=== PATIENT | male | born 1965 | race African-American/Black ===

== ENCOUNTER 2017-02-08 08:37 | Emergency (ER) | payer OTHER, BC ==
[2017-02-08] MEDS ORDERED: ONDANSETRON 4 MG TAB.RAPDIS SL ONE (09:47)
[2017-02-08] MEDS ORDERED: OXYCODONE-ACETAMINOPHEN 5-325 MG TABLET PO ONE (09:47)
--- NOTE | 2017-02-08 09:48 | ER Document Report ---
ED Medical Screen (RME) - General Chief Complaint: Flank Pain Stated Complaint: LOWER RIGHT ABDOMINAL PAIN Time seen by provider: 09:47 Mode of Arrival: Wheelchair Information source: Patient TRAVEL OUTSIDE OF THE [place] IN LAST 30 DAYS: No - HPI Patient complains to provider of: right flank pain Onset: Other - 2-3 days Onset/Duration: Gradual, Persistent Quality of pain: Achy, Fullness, Pressure Severity: Moderate Pain Level: 4 Associated Symptoms: Nausea Exacerbated by: Denies Relieved by: Denies Similar symptoms previously: Yes Recently seen / treated by doctor: No Notes: 02/08/17 09:48 Patient is a 51-year-old male who presents to the emergency room complaining of right-sided flank pain that's been worsening over the past 2-3 days, reports decreased kidney function in his left kidney, and a history of kidney stones in the past, patient denies any vomiting or diarrhea, no fever or chills, primary care provider is Dr. Honeycutt - Related Data Allergies/Adverse Reactions: No Known Allergies Allergy (Unverified 02/08/17 08:49) Past Medical History - Social History Chew tobacco use (# tins/day): No Frequency of alcohol use: None Drug Abuse: None - Past Medical History Cardiac Medical History: Reports: Hx Hypertension Renal/ Medical History: Reports: Hx Kidney Stones. Denies: Hx Peritoneal Dialysis Surgical Hx: Negative - Immunizations Hx Diphtheria, Pertussis, Tetanus Vaccination: No Physical Exam - Vital signs Vitals: Resp 02/08/17 09:46 Course - Vital Signs Vital signs: Temp Pulse Resp BP Pulse Ox 02/08/17 09:46
[2017-02-08 10:16] LABS: ABSOLUTE BASOPHILS # (AUTO) 0.1 10^3/uL (0.0-0.2); ABSOLUTE EOSINOPHILS # (AUTO) 0.3 10^3/uL (0.0-0.6); ABSOLUTE LYMPHOCYTES (AUTO) 1.2 10^3/uL (0.5-4.7); ABSOLUTE MONOCYTES (AUTO) 0.5 10^3/uL (0.1-1.4); ABSOLUTE NEUT (AUTO) 3.1 10^3/uL (1.7-8.2); BASOPHILS % (AUTO) 1.4 % (0-2); EOSINOPHILS % (AUTO) 5.5 % (0-6); HEMATOCRIT 41.2 % (37.9-51.0); HGB HCT DIFFERENCE 0.8; LYMPHOCYTES % (AUTO) 23.7 % (13-45); MEAN CORPUSCULAR HEMOGLOBIN 29.4 pg (27.0-33.4); MEAN CORPUSCULAR HGB CONC 34.1 g/dL (32.0-36.0); MEAN CORPUSCULAR VOLUME 86 fl (80-97); MONOCYTES % (AUTO) 9.9 % (3-13); RED BLOOD COUNT 4.77 10^6/uL (4.35-5.55); RED CELL DISTRIBUTION WIDTH 13.6 % (11.5-14.0); SEGMENTED NEUTROPHILS % (AUTO) 59.5 % (42-78); WHITE BLOOD COUNT 5.2 10^3/uL (4.0-10.5)
[2017-02-08 10:37] LABS: APPEARANCE,URINE CLEAR; BILIRUBIN,URINE NEGATIVE (NEGATIVE); GLUCOSE, URINE NEGATIVE (NEGATIVE); KETONES,URINE NEGATIVE (NEGATIVE); LEUKOCYTE ESTERASE,URINE NEGATIVE (NEGATIVE); NITRITE,URINE NEGATIVE (NEGATIVE); PROTEIN,URINE 30 mg/dL (NEGATIVE); URINE SPECIFIC GRAVITY 1.016; UROBILINOGEN,URINE NEGATIVE mg/dL (<2.0)
[2017-02-08 10:38] LABS: ALANINE AMINOTRANSFERASE 46 U/L (21-72); ALBUMIN 4.9 g/dL (3.5-5.0); ALKALINE PHOSPHATASE 88 U/L (38-126); ANION GAP 14 (5-19); ASPARTATE AMINO TRANSFERASE 41 U/L (17-59); BILIRUBIN,DIRECT 0.2 mg/dL (0.0-0.4); BILIRUBIN,TOTAL 0.5 mg/dL (0.2-1.3); BLOOD UREA NITROGEN 15 mg/dL (7-20); CALCIUM 9.7 mg/dL (8.4-10.2); CARBON DIOXIDE 27 mmol/L (22-30); CHLORIDE 103 mmol/L (98-107); CREATININE RESULT 1.08 mg/dL (0.52-1.25); GLUCOSE 129 mg/dL (75-110); LIPASE 148.4 U/L (23-300); POTASSIUM 4.1 mmol/L (3.6-5.0); TOTAL PROTEIN 8.2 g/dL (6.3-8.2)
[2017-02-08] MEDS ORDERED: LISINOPRIL 10 MG TABLET PO ONE (11:17)
--- NOTE | 2017-02-08 11:32 | ER Document Report ---
ED GI/ - General Chief Complaint: Flank Pain Stated Complaint: LOWER RIGHT ABDOMINAL PAIN Mode of Arrival: Wheelchair Information source: Patient TRAVEL OUTSIDE OF THE [place] IN LAST 30 DAYS: No - HPI Patient complains to provider of: Flank pain Onset: Yesterday Timing/Duration: Gradual Quality of pain: Cramping, Dull Severity at maximum: Moderate Severity in ED: Mild Context: Other - KNOWN DISEASED NON-FUNCTIONAL L. KIDNEY. denies: Bad food, Lifting, Out of the country travel, Recent trauma - Related Data Allergies/Adverse Reactions: No Known Allergies Allergy (Unverified 02/08/17 08:49) Past Medical History - General Information source: Patient - Social History Smoking Status: Never Smoker Chew tobacco use (# tins/day): No Frequency of alcohol use: None Drug Abuse: None Lives with: Spouse/Significant other Family History: Hypertension Patient has suicidal ideation: No Patient has homicidal ideation: No - Past Medical History Cardiac Medical History: Reports: Hx Hypertension Pulmonary Medical History: Reports: None Renal/ Medical History: Reports: Hx Kidney Stones. Denies: Hx Peritoneal Dialysis Musculoskeltal Medical History: Reports Hx Arthritis - R. SHOULDER Psychiatric Medical History: Reports: None Surgical Hx: Negative - Immunizations Hx Diphtheria, Pertussis, Tetanus Vaccination: No Review of Systems - Review of Systems Constitutional: No symptoms reported. denies: Chills, Fever EENT: No symptoms reported Cardiovascular: No symptoms reported Respiratory: No symptoms reported Gastrointestinal: No symptoms reported. denies: Nausea, Vomiting Genitourinary: See HPI Musculoskeletal: See HPI Skin: No symptoms reported Neurological/Psychological: No symptoms reported Physical Exam - Vital signs Vitals: Resp 18 02/08/17 09:46 Interpretation: Hypertensive. No: Tachycardic, Tachypneic, Febrile - General General appearance: Appears well, Alert In distress: None - HEENT Head: Normocephalic Eyes: Normal Conjunctiva: Normal Ears: Normal Nasal: Normal Mouth/Lips: Normal Mucous membranes: Normal Pharynx: Normal Neck: Normal - Respiratory Respiratory status: No respiratory distress Breath sounds: Normal - Cardiovascular Rhythm: Regular Heart sounds: Normal auscultation Murmur: No - Abdominal Inspection: Normal Distension: No distension Bowel sounds: Normal Tenderness: Nontender - Back Back: Normal. No: CVA tenderness - Extremities General upper extremity: Normal inspection General lower extremity: Normal inspection - Neurological Neuro grossly intact: Yes Cognition: Normal Orientation: AAOx4 - Psychological Associated symptoms: Normal affect, Normal mood - Skin Skin Temperature: Warm Skin Moisture: Dry Skin Color: Normal Skin Turgor: Elastic Course - Re-evaluation Re-evalutation: 02/08/17 11:30 Results of laboratory and radiographic studies discussed with patient and spouse. Also, lengthy discussion regarding hypertension and the dangers of noncompliance with antihypertensive regimen. Plan is to treat pain symptomatically and have patient follow-up with Dr. Jade tomorrow as scheduled. Copies of laboratory and radiology reports given to patient to carry to urologist. - Vital Signs Vital signs: Temp Pulse Resp BP Pulse Ox 97.2 F 69 20 202/111 H 100 02/08/17 10:51 02/08/17 10:51 02/08/17 10:51 02/08/17 10:51 02/08/17 10:51 - Laboratory Result Diagrams: 02/08/17 09:55 02/08/17 09:55 Laboratory results interpreted by me: 02/08/17 02/08/17 09:55 09:55 Glucose 129 H Urine Protein 30 H Urine Blood SMALL H Discharge - Discharge Clinical Impression: Right flank pain, Essential hypertension, Noncompliance with medication regimen Condition: Stable Disposition: HOME, SELF-CARE Instructions: Oral Narcotic Medication ([facility]), High Blood Pressure, Requiring Treatment ([facility]), Flank Pain ([facility]) Additional Instructions: REST, DRINK PLENTY OF FLUIDS. YOU MAY TAKE PERCOCET FOR PAIN IF NEEDED. CONTINUE OTHER MEDICATIONS USUAL. BE SURE TO TAKE YOUR BLOOD PRESSURE MEDICINE EXACTLY DIRECTED. FOLLOW UP WITH DR. JADE TOMORROW SCHEDULED, TAKE COPIES OF LAB AND CT SCAN RESULTS WITH YOU. FOLLOW UP WITH DR. CHEN WITHIN 3-5 DAYS FOR RE-CHECK OF BLOOD PRESSURE. Prescriptions: Oxycodone HCl/Acetaminophen [Percocet 5-325 mg Tablet] 1 - 2 tab PO ASDIR PRN # 15 tablet PRN Reason: Forms: Return to Work Referrals: MIRIAM CHEN MD [ACTIVE STAFF] - Follow up in 3-5 days RADHA JADE MD [NO LOCAL MD] - Follow up tomorrow
[2017-02-08 12:06] VITALS: BP 164/97
== END 2017-02-08 12:04 | disposition home or self-care (01) ==
LOC: ER 08:37
DX: R10.9 Unspecified abdominal pain (principal); N28.9 Disorder of kidney and ureter, unspecified; I10 Essential (primary) hypertension; Z91.14 Patient's other noncompliance with medication regimen; Z87.442 Personal history of urinary calculi
CPT/HCPCS: 99284; 36415; 87086; 83690; 85025; 80053; 81001; 76380; S0119

== ENCOUNTER 2017-07-03 00:34 | Emergency (ER) | payer OTHER, BC ==
--- NOTE | 2017-07-03 01:28 | ER Document Report ---
ED General - General Mode of Arrival: Ambulatory Information source: Patient TRAVEL OUTSIDE OF THE [place] IN LAST 30 DAYS: No - HPI Onset: Other - Refer to HPI notes <MAGGIE WATSON - Last Filed: 07/03/17 04:54> <SHANNAN MILLAN - Last Filed: 07/03/17 09:03> - General Chief Complaint: Palpitations Stated Complaint: PALPITATIONS Time Seen by Provider: 07/03/17 00:53 - HPI Notes: Patient is a 52 year old male presenting to the emergency department for palpitations. Patient states they have been intermittent throughout the day today and he cannot get them to go away. Patient states he has had palpitations before but they usually go away. 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 Patient states nothing relieves or exacerbates his palpitations. Patient denies any actual chest pain or abdominal pain. Patient has a history of hypertension. Patient denies any history of a cardiac stress test. Patient recently had his left kidney removed in March 2017. Patient hasn't had his medications adjusted since the surgery. PCP Dr. Chen (MAGGIE WATSON) - Related Data Allergies/Adverse Reactions: No Known Allergies Allergy (Unverified 02/08/17 08:49) Past Medical History - General Information source: Patient - Social History Smoking Status: Never Smoker Cigarette use (# per day): No Chew tobacco use (# tins/day): No Frequency of alcohol use: None Drug Abuse: None Family History: Hypertension Patient has suicidal ideation: No Patient has homicidal ideation: No - Past Medical History Cardiac Medical History: Reports: Hx Hypertension Renal/ Medical History: Reports: Hx Kidney Stones Musculoskeltal Medical History: Reports Hx Arthritis - R. SHOULDER Past Surgical History: Reports: Hx Kidney (Renal Surgery) - left kidney removal March 2017 - Immunizations Hx Diphtheria, Pertussis, Tetanus Vaccination: No <MAGGIE WATSON - Last Filed: 07/03/17 04:54> Review of Systems - Review of Systems Constitutional: No symptoms reported EENT: No symptoms reported Cardiovascular: See HPI, Palpitations. denies: Chest pain Respiratory: No symptoms reported Gastrointestinal: No symptoms reported. denies: Abdominal pain Genitourinary: No symptoms reported Male Genitourinary: No symptoms reported Musculoskeletal: No symptoms reported Skin: No symptoms reported Hematologic/Lymphatic: No symptoms reported Neurological/Psychological: No symptoms reported -: Yes All other systems reviewed and negative <SHIRLEYMAGGIE - Last Filed: 07/03/17 04:54> Physical Exam - Vital signs Interpretation: Normal <MAGGIE WATSON - Last Filed: 07/03/17 04:54> <SHANNAN MILLAN - Last Filed: 07/03/17 09:03> - Vital signs Vitals: Temp Pulse Resp BP Pulse Ox 98.5 F 61 18 141/89 H 99 07/03/17 00:38 07/03/17 00:38 07/03/17 00:38 07/03/17 00:38 07/03/17 00:38 - Notes Notes: GENERAL: Alert, interacts well. Mild distress. HEAD: Normocephalic, atraumatic. EYES: Appear normal. Pupils equal, round, and reactive to light. ENT: Moist mucus membranes, tongue midline. NECK: Full range of motion. Supple. Trachea midline. LUNGS: Clear to auscultation bilaterally, no wheezes, rales, or rhonchi. No respiratory distress. No reproducible chest wall tenderness with palpation. HEART: Regular rate and rhythm. No murmurs, gallops, or rubs. ABDOMEN: Soft, non-tender. Non-distended. Normal bowel sounds. EXTREMITIES: Moves all 4 extremities spontaneously. Normal strength. No edema. NEUROLOGICAL: Alert and oriented x3. Normal speech. No focal neurological deficits. GCS 15. PSYCH: Normal affect, normal mood. SKIN: Warm, dry, normal turgor. No rashes or lesions noted. (SHIRLEYMAGGIE) Course - Laboratory Result Diagrams: 07/03/17 01:15 07/03/17 01:15 - Consults Dr. Mckinnon Time consulted: 04:19 <MAGGIE WATSON - Last Filed: 07/03/17 04:54> - Laboratory Result Diagrams: 07/03/17 01:15 07/03/17 01:15 - Diagnostic Test Radiology reviewed: Reports reviewed - EKG Interpretation by Pa EKG shows normal: Sinus rhythm <SHANNAN MILLAN - Last Filed: 07/03/17 09:03> - Re-evaluation Re-evalutation: 07/03/17 Patient presents with palpitations. No chest pain. Troponin negative 2. No acute findings on EKG. Patient is to follow-up with his doctor and also Dr. Mckinnon. Stable for discharge. Understands and agrees with plan. (SHANNAN MILLAN) - Vital Signs Vital signs: Temp Pulse Resp BP Pulse Ox 98.5 F 61 16 132/84 H 98 07/03/17 00:38 07/03/17 00:38 07/03/17 05:45 07/03/17 05:43 07/03/17 05:45 - Laboratory Laboratory results interpreted by me: 07/03/17 07/03/17 01:15 01:15 WBC 3.9 L Hgb 12.9 L BUN 22 H - Consults Dr. Mckinnon Reason for consultation: 07/03/17 04:[address] Mckinnon to consult about patient. A message was left. 07/03/17 04:[address] Mckinnon again for possible consult about patient. Another message was left. (MAGGIE WATSON) Discharge <MAGGIE WATSON - Last Filed: 07/03/17 04:54> <SHANNAN MILLAN - Last Filed: 07/03/17 09:03> - Discharge Clinical Impression: Palpitations Condition: Stable Disposition: HOME, SELF-CARE Instructions: Palpitations (Irregular or Rapid Heartrate) ([facility]) Forms: Return to Work Referrals: MIRIAM CHEN MD [Primary Care Provider] - Follow up as needed JHON MCKINNON MD [ACTIVE STAFF] - Follow up in 3-5 days Scribe Attestation: 07/03/17 09:03 I personally performed the services described in the documentation, reviewed and edited the documentation which was dictated to the scribe in my presence, and it accurately records my words and actions. (SHANNAN MILLAN) Scribe Documentation - Scribe Written by Joshua:: Joshua Menendez 07/03/2017 3:33 acting as scribe for :: Paloma <MAGGIE WATSON - Last Filed: 07/03/17 04:54>
[2017-07-03 02:09] LABS: ABSOLUTE EOSINOPHILS # (AUTO) 0.2 10^3/uL (0.0-0.6); ABSOLUTE LYMPHOCYTES (AUTO) 1.6 10^3/uL (0.5-4.7); ABSOLUTE MONOCYTES (AUTO) 0.3 10^3/uL (0.1-1.4); ABSOLUTE NEUT (AUTO) 1.8 10^3/uL (1.7-8.2); EOSINOPHILS % (AUTO) 5.5 % (0-6); HEMATOCRIT 38.5 % (37.9-51.0); HEMOGLOBIN 12.9 g/dL (13.5-17.0); HGB HCT DIFFERENCE 0.2; LYMPHOCYTES % (AUTO) 39.7 % (13-45); MEAN CORPUSCULAR HEMOGLOBIN 29.2 pg (27.0-33.4); MEAN CORPUSCULAR HGB CONC 33.5 g/dL (32.0-36.0); MEAN CORPUSCULAR VOLUME 87 fl (80-97); MONOCYTES % (AUTO) 7.7 % (3-13); RED BLOOD COUNT 4.42 10^6/uL (4.35-5.55); RED CELL DISTRIBUTION WIDTH 13.6 % (11.5-14.0); SEGMENTED NEUTROPHILS % (AUTO) 46.1 % (42-78); WHITE BLOOD COUNT 3.9 10^3/uL (4.0-10.5)
[2017-07-03 02:20] LABS: ALANINE AMINOTRANSFERASE 29 U/L (21-72); ALBUMIN 4.6 g/dL (3.5-5.0); ALKALINE PHOSPHATASE 96 U/L (38-126); ANION GAP 11 (5-19); ASPARTATE AMINO TRANSFERASE 23 U/L (17-59); BILIRUBIN,DIRECT 0.3 mg/dL (0.0-0.4); BILIRUBIN,TOTAL 0.4 mg/dL (0.2-1.3); BLOOD UREA NITROGEN 22 mg/dL (7-20); CALCIUM 10.1 mg/dL (8.4-10.2); CARBON DIOXIDE 29 mmol/L (22-30); CHLORIDE 99 mmol/L (98-107); CREATININE RESULT 1.22 mg/dL (0.52-1.25); GLUCOSE 105 mg/dL (75-110); POTASSIUM 3.6 mmol/L (3.6-5.0); SODIUM 139.3 mmol/L (137-145); TOTAL PROTEIN 7.7 g/dL (6.3-8.2)
--- NOTE | 2017-07-03 04:18 | RADIOLOGY REPORT (SQ) ---
EXAM DESCRIPTION: CHEST PA/LAT COMPLETED DATE/TIME: 07/03/2017 3:51 am REASON FOR STUDY: palpitations COMPARISON: None. EXAM PARAMETERS: NUMBER OF VIEWS: two views TECHNIQUE: Digital Frontal and Lateral radiographic views of the chest acquired. RADIATION DOSE: NA LIMITATIONS: none FINDINGS: LUNGS AND PLEURA: Focal increased density at the right lung apex on the frontal view. No pneumothorax or pleural effusion. MEDIASTINUM AND HILAR STRUCTURES: No masses or contour abnormalities. HEART AND VASCULAR STRUCTURES: Heart normal size. No evidence for failure. BONES: No acute findings. HARDWARE: None in the chest. IMPRESSION: Focal increased density at the right lung apex, may represent pulmonary nodule vs artifa ct from overlapping densities. CT thorax can help in better evaluation. TECHNICAL DOCUMENTATION: JOB ID: [id number] [employer]- All Rights Reserved
[2017-07-03 05:54] VITALS: BP 132/84
--- NOTE | 2017-07-03 08:21 | EKG REPORT ---
SEVERITY:- ABNORMAL ECG - SINUS RHYTHM PACS WITH ABERRENCY PROBABLE LVH WITH SECONDARY REPOL ABNRM : Confirmed by: Cosmo Moses MD 03-Jul-2017 08:20:49
== END 2017-07-03 06:20 | disposition home or self-care (01) ==
LOC: ER 00:34
DX: R00.2 Palpitations (principal); I10 Essential (primary) hypertension; Z90.5 Acquired absence of kidney; Z87.442 Personal history of urinary calculi
CPT/HCPCS: 36415; 71020; 80053; 84443; 84484; 85025; 93005; 93010; 99285